=== PATIENT | male | born 1960 | race Caucasian/White ===

== ENCOUNTER 2022-06-09 11:22 | Observation (INO) ==
[2022-06-09] MEDS ORDERED: Iopamidol - 370 500 ML MLS IVP ONE (13:04)
[2022-06-09 13:45] LABS: Basophils # 0.1 K/mcL (0.0-0.2); Basophils % 0.8 %; Eosinophils # 0.9 K/mcL (0.0-0.6); Eosinophils % 6.1 %; Hematocrit 45.7 % (37.5-50.1); Hemoglobin 15.2 g/dL (12.9-16.9); Immature Granulocytes % 2.3 % (0-4); Lymphocytes # 1.2 K/mcL (0.6-4.6); Lymphocytes % 8.1 %; Mean Corpuscular HGB Conc 33.3 g/dL (31.6-35.5); Mean Corpuscular Hemoglobin 31.1 pg (28.0-33.3); Mean Corpuscular Volume 93.5 fL (83.0-100.0); Mean Platelet Volume 10.3 fL (9.4-12.4); Monocytes # 0.8 K/mcL (0.0-1.3); Monocytes % 5.7 %; Neutrophils # 11.3 K/mcL (1.6-8.9); Platelet Count 270 K/mcL (140-400); Red Blood Count 4.89 M/mcL (4.19-5.50); Red Cell Distribution Width 13.7 % (11.5-14.5); White Blood Count 14.6 K/mcL (4.3-11.1)
[2022-06-09 14:07] LABS: Alanine Aminotransferase 27 Units/L (7-52); Albumin 3.8 g/dL (3.5-5.7); Albumin/Globulin Ratio 1.5 (1.1-2.2); Alkaline Phosphatase 46 Units/L (34-104); Aspartate Amino Transferase 21 Units/L (13-39); BUN/Creatinine Ratio 17 (6-26); Bilirubin,Direct 0.1 mg/dL (0.0-0.2); Bilirubin,Indirect 0.6 mg/dL (0.0-1.0); Bilirubin,Total 0.7 mg/dL (0.3-1.0); Blood Urea Nitrogen 12 mg/dL (8-23); Calcium 9.6 mg/dL (8.6-10.3); Carbon Dioxide 25 mEq/L (23-29); Chloride 102 mEq/L (98-107); Globulin 2.6 g/dL (2.4-3.5); Glucose 168 mg/dL (70-105); Osmolality,Calculated 288 (280-300); Potassium 2.9 mEq/L (3.5-5.1); Sodium 137 mEq/L (136-145); Total Protein 6.4 g/dL (6.4-8.9)
[2022-06-09] MEDS ORDERED: Vancomycin 1,750 MG/517.5 ML IV.SOLN IVPB ONE (14:40)
[2022-06-09] MEDS ORDERED: Naloxone 0.4 MG/ML INJ IVP PRN (17:52)
[2022-06-09] MEDS ORDERED: Melatonin 3 MG TABLET PO PRN (17:52)
[2022-06-09] MEDS ORDERED: Acetaminophen 325 MG TABLET PO PRN (17:52)
[2022-06-09] MEDS ORDERED: Ondansetron ODT 4 MG TAB.RAPDIS SL PRN (17:52)
[2022-06-09] MEDS ORDERED: Ampicillin/Sulbactam 3,000 MG in 0.9 % Sodium Chloride Mini Bag 100 ML IVPB SCH (18:00)
[2022-06-09] MEDS ORDERED: methylPREDNISolone 125 MG/2 ML VIAL IVP ONE ×2 (18:30→22:00)
[2022-06-09 19:35] LABS: C-Reactive Protein 113 mg/L (Less than 10)
[2022-06-09] MEDS: Ampicillin/Sulbactam 3,000 MG in 0.9 % Sodium Chloride Mini Bag 100 ML IVPB SCH (22:17)
[2022-06-09] MEDS: *HR* Heparin 5,000 UNIT/ML VIAL SQ SCH (22:18)
[2022-06-10] MEDS: *HR* Heparin 5,000 UNIT/ML VIAL SQ SCH ×3 (05:35→23:15)
[2022-06-10] MEDS: Ampicillin/Sulbactam 3,000 MG in 0.9 % Sodium Chloride Mini Bag 100 ML IVPB SCH ×4 (05:35→23:15)
[2022-06-10 05:42] LABS: Mean Corpuscular HGB Conc 33.8 g/dL (31.6-35.5); Mean Corpuscular Hemoglobin 31.4 pg (28.0-33.3); Mean Platelet Volume 10.3 fL (9.4-12.4); Platelet Count 249 K/mcL (140-400); Red Cell Distribution Width 13.7 % (11.5-14.5); White Blood Count 9.2 K/mcL (4.3-11.1)
[2022-06-10 05:43] LABS: Hemoglobin 13.5 g/dL (12.9-16.9)
[2022-06-10 06:01] LABS: BUN/Creatinine Ratio 17 (6-26); Blood Urea Nitrogen 13 mg/dL (8-23); Calcium 8.7 mg/dL (8.6-10.3); Carbon Dioxide 23 mEq/L (23-29); Chloride 104 mEq/L (98-107); Chol/HDL Ratio 6.9 (0-4.9); Cholesterol 152 mg/dL (< 200); Glucose 226 mg/dL (70-105); HDL Cholesterol 22 mg/dL (40-59); LDL Cholesterol,Calculated 103 mg/dL (< 100); Magnesium 1.6 mg/dL (1.6-2.6); Osmolality,Calculated 289 (280-300); Potassium 3.4 mEq/L (3.5-5.1); Sodium 136 mEq/L (136-145); Triglycerides 133 mg/dL (< 150)
[2022-06-10] MEDS: Folic Acid 1 MG TABLET PO SCH (09:21)
[2022-06-10] MEDS: cilostazoL 100 MG TABLET PO SCH ×2 (09:21→19:55)
[2022-06-10] MEDS: Psyllium 1 PACKET POWD.PACK PO SCH ×2 (09:22→10:00)
[2022-06-10] MEDS: Cyanocobalamin (B-12) 1,000 MCG TABLET PO SCH (09:22)
[2022-06-10] MEDS: hydroCHLOROthiazide 25 MG TABLET PO SCH (09:22)
[2022-06-10] MEDS: Pyridoxine (B-6) 50 MG TABLET PO SCH (09:30)
[2022-06-10] MEDS: predniSONE 20 MG TABLET PO SCH (12:09)
[2022-06-10] MEDS: Clobetasol Propionate 0.05% 15 GM Cream Tube TP SCH ×2 (14:33→19:55)
[2022-06-11 03:29] LABS: Basophils # 0.1 K/mcL (0.0-0.2); Basophils % 0.3 %; Eosinophils % 0.1 %; Hematocrit 39.5 % (37.5-50.1); Hemoglobin 13.1 g/dL (12.9-16.9); Immature Granulocytes % 1.8 % (0-4); Lymphocytes # 1.6 K/mcL (0.6-4.6); Lymphocytes % 8.4 %; Mean Corpuscular HGB Conc 33.2 g/dL (31.6-35.5); Mean Corpuscular Hemoglobin 31.6 pg (28.0-33.3); Mean Corpuscular Volume 95.4 fL (83.0-100.0); Mean Platelet Volume 10.5 fL (9.4-12.4); Monocytes # 1.5 K/mcL (0.0-1.3); Monocytes % 7.8 %; Neutrophils # 15.5 K/mcL (1.6-8.9); Platelet Count 270 K/mcL (140-400); Red Blood Count 4.14 M/mcL (4.19-5.50); Red Cell Distribution Width 13.8 % (11.5-14.5); Segmented Neutrophils % 81.6 %
[2022-06-11] MEDS: Ampicillin/Sulbactam 3,000 MG in 0.9 % Sodium Chloride Mini Bag 100 ML IVPB SCH ×2 (04:05→09:47)
[2022-06-11] MEDS: *HR* Heparin 5,000 UNIT/ML VIAL SQ SCH ×2 (04:05→13:27)
[2022-06-11 04:06] LABS: BUN/Creatinine Ratio 23 (6-26); Blood Urea Nitrogen 18 mg/dL (8-23); Calcium 9.2 mg/dL (8.6-10.3); Carbon Dioxide 25 mEq/L (23-29); Chloride 108 mEq/L (98-107); Glucose 138 mg/dL (70-105); Osmolality,Calculated 300 (280-300); Potassium 3.5 mEq/L (3.5-5.1); Sodium 143 mEq/L (136-145)
[2022-06-11] MEDS: Folic Acid 1 MG TABLET PO SCH (08:21)
[2022-06-11] MEDS: predniSONE 20 MG TABLET PO SCH (08:21)
[2022-06-11] MEDS: cilostazoL 100 MG TABLET PO SCH (08:21)
[2022-06-11] MEDS: Cyanocobalamin (B-12) 1,000 MCG TABLET PO SCH (08:21)
[2022-06-11] MEDS: Pyridoxine (B-6) 50 MG TABLET PO SCH (08:21)
[2022-06-11] MEDS: hydroCHLOROthiazide 25 MG TABLET PO SCH (08:23)
[2022-06-11] MEDS: Clobetasol Propionate 0.05% 15 GM Cream Tube TP SCH (08:23)
[2022-06-11] MEDS ORDERED: Nicotine 21 MG PATCH.TD24 TD SCH ×2 (09:00→14:15)
[2022-06-11] MEDS: Psyllium 1 PACKET POWD.PACK PO SCH (09:34)
[2022-06-11 10:07] VITALS: TEMP 97.8
[2022-06-11 14:44] VITALS: BP 139/83; PULSE 83; O2SAT 95
== END 2022-06-11 16:48 | disposition home or self-care (01) ==
LOC: EMEROOARM 11:22 → 4WAOSI 11:22 → SUATTDRO 17:55 → 4WAOSI 20:08 → UNDODISOB 06-11 11:40
PROVIDERS: ADMIT Hospitalist; ATTEND Family Medicine